=== PATIENT | female | born 1950 | race Caucasian/White ===

== ENCOUNTER → 2016-11-11 | Outpatient (CLI) | payer BC ==
[~2016-11-11] MED LIST: ATOR10TA82 PO; CHOL20005 PO; CLON0.5T3 PO; CTP1X PO; CZR25 PO; MELO7.5T5 PO; OMEG10002 PO; ROSU5TAB PO; SPIR50TA2 PO; TPRSR/25 PO; ZNTT/150 PO
== END | disposition home or self-care (01) ==
LOC: C.MAMM 12:39
PROVIDERS: ATTEND Family Medicine
DX: M85.852 Other specified disorders of bone density and structure, left thigh (principal)

== ENCOUNTER 2017-01-07 09:19 | Observation (INO) | payer BC ==
[2017-01-07] VITALS (7 sets, daily range): BP systolic 116–149; BP diastolic 66–84; PULSE 62–79; TEMP 36.4–36.8; O2SAT 93–97; Ht 154.9 cm; Wt 61.9 kg
[~2017-01-07] VITALS: Ht 154.9 cm; Wt 61.9 kg
[~2017-01-07 09:19] MED LIST changes: -CLON0.5T3 PO; -MELO7.5T5 PO; -ROSU5TAB PO; -ZNTT/150 PO
--- NOTE | 2017-01-07 09:59 | EMERGENCY ROOM VISIT NOTE ---
History Report prepared by Toni: Leonora Guzmán Under the Supervision of: Dr. Dominik Arriaga M.D. First contact with patient: 09:40 Chief Complaint: CARDIAC ASSESSMENT Stated Complaint: CHEST PAIN History of Present Illness The patient is a 66 year old female who presents to the Emergency Room with complaints of persistent chest pain that began around 0830 this morning, but has since resolved. She currently rates her discomfort as a 5/10 in severity. The patient reports that this morning she woke up and was drinking her morning cup of coffee when she developed sudden central chest pain. She reports that she waited because she thought her symptoms were related to gas, but states that she additionally developed lower back pain and right sided jaw pain. The patient states that she became diaphoretic and tried lying down, but states that her symptoms persisted. The patient states that recently she has felt increasingly fatigued, but attributes that to recent medication changes. The patient states that she has had difficulty breathing. She reports a history of cardiomyopathy, but denies any history of lung disease, blood clots, or a previous CA. The patient states that she is a previous smoker. She denies any melena or hematochezia. Source of History: patient Onset: 0830 this morning Position: chest Symptom Intensity: 5/10 Timing: resolved, other (persistent) Associated Symptoms: + diaphoresis, + SOB (difficulty breathing), + back pain (lower back), + fatigue, No melena, No hematochezia Note: Associated Symptoms: Right sided jaw pain Review of Systems See HPI for pertinent positives & negatives. A total of 10 systems reviewed and were otherwise negative. Past Medical & Surgical Medical Problems: (1) HLD (hyperlipidemia) (2) HTN (hypertension) Old medical records were reviewed. Nurse's notes were reviewed and I agree with. Prolonged QT interval. Cardiomyopathy. Family History Heart disease Social History Smoking Status: Former Smoker Drug Use: none Marital Status: single Occupation Status: employed Current/Historical Medications Scheduled Clonidine HCl (Clonidine HCl), 0.1 MG PO HS Losartan Potassium (Losartan Potassium), 25 MG PO DAILY Metoprolol Succinate (Metoprolol Succinate ER), 25 MG PO DAILY Ranitidine (Zantac), 150 MG PO DAILY Rosuvastatin Calcium (Crestor), 5 MG PO Q2D Spironolactone (Aldactone), 50 MG PO DAILY Scheduled PRN Clonazepam (Klonopin), 0.25 MG PO DIRECTED PRN for Sleep Meloxicam (Mobic), 7.5 MG PO DIRECTED PRN for Pain Allergies Coded Allergies: Latex1 -Allergic Contact Dermititis (Verified Allergy, Mild, contact dermatitis, 01/07/17) Amoxicillin (Verified Allergy, Unknown, HIVES, 11/22/15) Aspirin (Verified Allergy, Unknown, GI UPSET, 11/22/15) Clavulanic Acid (Verified Allergy, Unknown, HIVES, 11/22/15) Lamotrigine (Verified Allergy, Unknown, AFFECTS MIND, 11/22/15) Penicillins (Verified Allergy, Unknown, RASH, 11/22/15) Pravastatin (Verified Allergy, Unknown, RASH, 11/22/15) Physical Exam Vital Signs Date Time Temp Pulse Resp B/P (MAP) Pulse Ox O2 Delivery O2 Flow Rate FiO2 01/07/17 10:55 96 Room Air 01/07/17 10:27 65 18 154/71 97 Room Air 01/07/17 09:37 65 01/07/17 09:23 36.7 76 20 161/80 98 Room Air Physical Exam General: Well developed well nourished, non-ill appearing older female, in no acute distress, breathing comfortably on room air. Normal speech HEENT: Normal cephalic atraumatic. Pupils are equal round and reactive to light. Extraocular movements are intact. Oropharynx is pink with moist mucous membranes. No swelling of the mouth lips or tongue. Neck: Supple with a midline trachea. No meningeal signs or stiffness, no JVD or bruits. No Stridor. Chest: Clear to auscultation bilaterally. No wheezes or rhonchi. No increased work of breathing. Heart: regular rate and rhythm. Abdomen: Soft nontender, nondistended without rebound guarding or rigidity. Extremities: No cyanosis clubbing or edema. No calf tenderness or assymetry Spine/Back. Non tender to palpation. No CVA tenderness Skin: Good turgor without rashes. Neurologic exam: Cranial nerves two through 12 are intact. Motor and sensation are intact and symmetrical throughout. Medical Decision & Procedures ER Provider Diagnostic Interpretation: X-ray results as stated below per interpretation by me and the radiologist: CHEST ONE VIEW PORTABLE CLINICAL HISTORY: CHEST PAIN dyspnea COMPARISON STUDY: 11/22/2015 FINDINGS: The bones soft tissues and hemidiaphragms are normal. The cardiomediastinal silhouette is normal. The lungs are clear. The pulmonary vasculature is normal. IMPRESSION: Negative chest. Electronically signed by: Tevin Valencia M.D. 01/07/2017 10:11 AM Dictated Date/Time: 01/07/2017 10:10 AM Laboratory Results 01/07/17 09:30 Red Blood Count 4.97, Mean Corpuscular Volume 89.9, Mean Corpuscular Hemoglobin 31.0, Mean Corpuscular Hemoglobin Concent 34.5, Mean Platelet Volume 9.1, Neutrophils (%) (Auto) 40.8, Lymphocytes (%) (Auto) 51.3, Monocytes (%) (Auto) 6.8, Eosinophils (%) (Auto) 0.7, Basophils (%) (Auto) 0.3, Neutrophils # (Auto) 2.90, Lymphocytes # (Auto) 3.64, Monocytes # (Auto) 0.48, Eosinophils # (Auto) 0.05, Basophils # (Auto) 0.02 01/07/17 09:30 Test 01/07/17 09:30 01/07/17 09:54 White Blood Count 7.10 K/uL (4.8-10.8) Red Blood Count 4.97 M/uL (4.2-5.4) Hemoglobin 15.4 g/dL (12.0-16.0) Hematocrit 44.7 % (37-47) Mean Corpuscular Volume 89.9 fL (80-100) Mean Corpuscular Hemoglobin 31.0 pg (25-34) Mean Corpuscular Hemoglobin Concent 34.5 g/dl (32-36) Platelet Count 259 K/uL (130-400) Mean Platelet Volume 9.1 fL (7.4-10.4) Neutrophils (%) (Auto) 40.8 % Lymphocytes (%) (Auto) 51.3 % Monocytes (%) (Auto) 6.8 % Eosinophils (%) (Auto) 0.7 % Basophils (%) (Auto) 0.3 % Neutrophils # (Auto) 2.90 K/uL (1.4-6.5) Lymphocytes # (Auto) 3.64 K/uL (1.2-3.4) Monocytes # (Auto) 0.48 K/uL (0.11-0.59) Eosinophils # (Auto) 0.05 K/uL (0-0.5) Basophils # (Auto) 0.02 K/uL (0-0.2) RDW Standard Deviation 40.9 fL (36.4-46.3) RDW Coefficient of Variation 12.5 % (11.5-14.5) Immature Granulocyte % (Auto) 0.1 % Immature Granulocyte # (Auto) 0.01 K/uL (0.00-0.02) Prothrombin Time 10.4 SECONDS (9.0-12.0) Prothromb Time International Ratio 1.0 (0.9-1.1) Activated Partial Thromboplast Time 25.7 SECONDS (21.0-31.0) Partial Thromboplastin Ratio 1.0 Anion Gap 8.0 mmol/L (3-11) Estimated GFR () 70.0 Estimated GFR (Non- 60.4 BUN/Creatinine Ratio 28.7 (10-20) Estimated Average Glucose 128 mg/dl Hemoglobin A1c 6.1 % (4.5-5.6) Calcium Level 8.9 mg/dl (8.5-10.1) Total Bilirubin 0.8 mg/dl (0.2-1) Direct Bilirubin 0.2 mg/dl (0-0.2) Aspartate Amino Transf (AST/SGOT) 80 U/L (15-37) Alanine Aminotransferase (ALT/SGPT) 54 U/L (12-78) Alkaline Phosphatase 32 U/L (45-117) Total Protein 7.6 gm/dl (6.4-8.2) Albumin 4.1 gm/dl (3.4-5.0) Lipase 282 U/L (73-393) Bedside Troponin I < 0.030 ng/ml (0-0.045) YN-Hnn-Z-Type Natriuretic Peptide 137 pg/ml (0-900) Laboratory studies as stated above per my review. ECG Indication: chest pain Rate (beats per minute): 68 Rhythm: normal sinus Findings: no acute ischemic change, no ectopy, other (QT interval is not prolonged) Comparison ECG Date: 11/22/15 Change: EKG Change: When compared to EKG done on 11/22/15, PVCs are now absent. Repeat EKG: Normal sinus rhythm, 67 beats per minute, no ischemia, no ectopy. No change from EKG #1 ED Course 0940: Past medical records reviewed. The patient was evaluated in room A11B, and a complete history and physical examination were performed. 1035: I reevaluated the patient and she states that she had an episode of chest pain, but states that it had resolved. I offered a GI cocktail or Nitro, but she declined. I discussed all the exam findings with her and I discussed the treatment plan. She verbalized complete understanding and agreement. She will be evaluated for further treatment. 1051: I discussed the patients case with JOCE Minaya. He is going to evaluate the patient for further treatment. 1055: I reevaluated the patient and Dr. Caal is at the bedside. Medical Decision Differentials include, but are not limited to; acute coronary syndrome, arrhythmia, CHF, GERD, gallbladder disease, electrolyte or metabolic abnormality. This patient comes in complaining of chest pain and Jaw pain as well as shortness of breath she feels better now. She has no tenderness in the epigastric area has not reproducible. She have stomach issues and recently switched to Crestor so that could certainly be causing some of this. I'm concerned about cardiac etiology however. EKG was obtained showing acute coronary syndrome or arrhythmia. Her QT interval is not significantly prolonged at 467. Chest x-ray multiple cardiac blood testing was obtained. A follow-up EKG does not show any significant change or progression compared to EKG #1. Her initial cardiac biomarkers are negative. She has no acute electrolyte or metabolic abnormalities. I do think that she needs to be observed and had a further cardiac evaluation concern given her risk factors and symptoms of this could be unstable angina. She cannot take aspirin she tells me. She will be admitted for further treatment and evaluation. Reconciliation: I attest that I have personally reviewed the patient's current medication list. Blood pressure Screening: Patient was found to have an elevated blood pressure and is being evaluated for further treatment in the hospital. Consults Time Called: 1040 Consulting Physician: JOCE Minaya Returned Call: 1051 I discussed the patients case with JOCE Minaya. He is going to evaluate the patient for further treatment. Impression Primary Impression: Unstable angina Additional Impression: Precordial chest pain Scribe Attestation The scribe's documentation has been prepared under my direction and personally reviewed by me in its entirety. I confirm that the note above accurately reflects all work, treatment, procedures, and medical decision making performed by me. Departure Information Dispostion Being Evaluated By Hospitalist Referrals Julián Interiano D.O. (PCP) Problem Qualifiers
[2017-01-07 10:03] LABS: HEMATOCRIT 44.7 % (37-47); MEAN CELL VOLUME 89.9 fL (80-100); MEAN CORPUSCULAR HGB CONC 34.5 g/dl (32-36); MEAN PLATELET VOLUME 9.1 fL (7.4-10.4); PLATELET COUNT 259 K/uL (130-400); RED BLOOD COUNT 4.97 M/uL (4.2-5.4)
--- NOTE | 2017-01-07 10:12 | DIAGNOSTIC IMAGING REPORT ---
CHEST ONE VIEW PORTABLE CLINICAL HISTORY: CHEST PAIN dyspnea COMPARISON STUDY: 11/22/2015 FINDINGS: The bones soft tissues and hemidiaphragms are normal. The cardiomediastinal silhouette is normal. The lungs are clear. The pulmonary vasculature is normal. IMPRESSION: Negative chest. Electronically signed by: Tevin Valencia M.D. 01/07/2017 10:11 AM Dictated Date/Time: 01/07/2017 10:10 AM
[2017-01-07 10:13] LABS: BLOOD UREA NITROGEN 28 mg/dl (7-18); BUN/CREATININE RATIO 28.7 (10-20); CALCIUM 8.9 mg/dl (8.5-10.1); CARBON DIOXIDE 29 mmol/L (21-32); CHLORIDE 103 mmol/L (98-107); CREATININE 0.97 mg/dl (0.60-1.20); GLUCOSE 124 mg/dl (70-99); POTASSIUM 3.7 mmol/L (3.5-5.1); SODIUM 140 mmol/L (136-145)
[2017-01-07 10:14] LABS: PROTHROMBIN TIME (PATIENT) 10.4 SECONDS (9.0-12.0)
[2017-01-07 10:14] LABS: POINT OF CARE PRO-BNP 137 pg/ml (0-900); POINT OF CARE TROPONIN I < 0.030 ng/ml (0-0.045)
[2017-01-07 10:18] LABS: ALKALINE PHOSPHATASE 32 U/L (45-117); ALT/SGPT 54 U/L (12-78); AST/SGOT 80 U/L (15-37); CKMB/CK RATIO 1.1 (0-3.0)
[2017-01-07] MEDS ORDERED: MELO7.5T5 PO (10:39)
[2017-01-07] MEDS ORDERED: ROSU5TAB PO (10:39)
[2017-01-07] MEDS ORDERED: CLON0.5T3 PO (10:39)
[2017-01-07] MEDS ORDERED: ZNTT/150 PO (10:39)
[2017-01-07 10:47] LABS: BASO % 0.3 %; BASO ABS # 0.02 K/uL (0-0.2); COMPLETE YES; EOS % 0.7 %; IG% 0.1 %; LYMPH % 51.3 %; LYMPH ABS # 3.64 K/uL (1.2-3.4); MONO % 6.8 %; NEUT % 40.8 %
[2017-01-07] MEDS ORDERED: MAGNESIUM HYDROXIDE SUSP 30 ML UDC PO PRN (12:00)
[2017-01-07] MEDS ORDERED: ONDANSETRON INJ 2 MG/ML 2 ML VIAL IV PRN (12:00)
[2017-01-07] MEDS ORDERED: ACETAMINOPHEN 325 MG TAB PO PRN (12:00)
[2017-01-07] MEDS ORDERED: POLYETHYLENE (MIRALAX) 17 GM PACK PO PRN (12:00)
[2017-01-07] MEDS ORDERED: ALUMINUM/MAGNESIUM/SIMETH (MAALOX MAX) 30 ML UDC PO PRN (12:00)
[2017-01-07] MEDS ORDERED: NITROGLYCERIN 0.4 MG SL PER TAB CHARGE SL PRN (12:00)
--- NOTE | 2017-01-07 12:23 | History and Physical ---
History & Physical Date & Time of Service: Jan 07, 2017 at 12:03 Chief Complaint: Chest Pain Primary Care Physician: Julián Interiano D.O. History of Present Illness Source: patient, clinic records, hospital records, friend (neighbor/friend at bedside) This is a 66 y/o female with a history of HTN, HLD, prolonged QT syndrome, REM sleep behavior disorder, and osteopenia who presented to the ED on 01/07 with chest pain. The patient states that she developed a central chest pressure around 8:30 this morning while drinking her coffee. She described the initial pain as a severe 10/10 pressure like "an elephant on my chest." This was accompanied with diaphoresis as well as mild dizziness, nausea, and shortness of breath. The patient states that the severe pain lasted for about 30 minutes and then began to subside. She did not take anything at home for her pain and did not receive any medication in the ED. The pain eventually resolved, although she now states that it is now intermittent. She currently rates her discomfort as a 2/10 dull pain. She is still somewhat dizzy, but her nausea and shortness of breath have resolved. The patient states that she has also been feeling more fatigued over the last month than usual, but she attributes this to the recent change in her statin. The patient denies fevers, chills, palpitations, claudication, cough, wheezing, vomiting, abdominal pain, dysuria, hematuria, urinary retention, paralysis, weakness, new/different numbness and tingling. Past Medical/Surgical History HTN HLD Prolonged QT REM sleep behavior disorder Osteopenia Family History Cancer (breast, bone) Chronic obstructive pulmonary disease Diabetes mellitus Heart disease Hyperlipidemia Hypertension Myocardial infarction Social History Smoking Status: Never Smoker Smokeless Tobacco Use: No Alcohol Use: socially (3-4 glasses of wine/week) Drug Use: none Marital Status: single Housing status: lives alone Occupational Status: retired Multi-Drug Resistant Organisms History of MDRO: No Allergies Coded Allergies: Latex1 -Allergic Contact Dermititis (Verified Allergy, Mild, contact dermatitis, 01/07/17) Amoxicillin (Verified Allergy, Unknown, HIVES, 11/22/15) Aspirin (Verified Allergy, Unknown, GI UPSET, 11/22/15) Clavulanic Acid (Verified Allergy, Unknown, HIVES, 11/22/15) Lamotrigine (Verified Allergy, Unknown, AFFECTS MIND, 11/22/15) Penicillins (Verified Allergy, Unknown, RASH, 11/22/15) Pravastatin (Verified Allergy, Unknown, RASH, 11/22/15) Home Medications Scheduled Clonidine HCl (Clonidine HCl), 0.1 MG PO HS Losartan Potassium (Losartan Potassium), 25 MG PO DAILY Metoprolol Succinate (Metoprolol Succinate ER), 25 MG PO DAILY Ranitidine (Zantac), 150 MG PO DAILY Rosuvastatin Calcium (Crestor), 5 MG PO Q2D Spironolactone (Aldactone), 50 MG PO DAILY Scheduled PRN Clonazepam (Klonopin), 0.25 MG PO DIRECTED PRN for Sleep Meloxicam (Mobic), 7.5 MG PO DIRECTED PRN for Pain Review of Systems Constitutional: + sweats, + fatigue, No fever, No chills Eyes: No worsening of vision, No eye pain, No diplopia ENT: No hearing loss, No sore throat, No trouble swallowing Respiratory: + shortness of breath, No cough, No wheezing Cardiovascular: + chest pain, No claudication, No palpitations Abdomen: + nausea, No pain, No vomiting Musculoskeletal: No joint pain, No muscle pain, No calf pain Genitourinary - Female: No dysuria, No urinary retention, No hematuria Neurologic: + numbness/tingling (chronic RUE tingling secondary to cervical spinal stenosis), No paralysis, No weakness Integumentary: No rash, No itch, No color change Physical Exam Vital Signs Date Time Temp Pulse Resp B/P (MAP) Pulse Ox O2 Delivery O2 Flow Rate FiO2 01/07/17 10:27 65 18 154/71 97 Room Air 01/07/17 09:37 65 01/07/17 09:23 36.7 76 20 161/80 98 Room Air General Appearance: WD/WN, no apparent distress Head: normocephalic, atraumatic Eyes: normal inspection, PERRL, EOMI ENT: normal ENT inspection, hearing grossly normal, pharynx normal Neck: supple, no JVD, trachea midline Respiratory/Chest: chest non-tender, lungs clear, normal breath sounds Cardiovascular: regular rate, rhythm, no gallop, no murmur Abdomen/GI: normal bowel sounds, soft, + tenderness (mild tenderness in suprapubic area) Extremities/Musculoskelatal: normal inspection, no calf tenderness, no pedal edema Neurologic/Psych: alert, normal mood/affect, oriented x 3 Skin: normal color, warm/dry, no rash Diagnostics Laboratory Results Results Past 24 Hours Test 01/07/17 09:30 01/07/17 09:49 01/07/17 09:54 Range/Units White Blood Count 7.10 4.8-10.8 K/uL Red Blood Count 4.97 4.2-5.4 M/uL Hemoglobin 15.4 12.0-16.0 g/dL Hematocrit 44.7 37-47 % Mean Corpuscular Volume 89.9 80-100 fL Mean Corpuscular Hemoglobin 31.0 25-34 pg Mean Corpuscular Hemoglobin Concent 34.5 32-36 g/dl Platelet Count 259 130-400 K/uL Mean Platelet Volume 9.1 7.4-10.4 fL Neutrophils (%) (Auto) 40.8 % Lymphocytes (%) (Auto) 51.3 % Monocytes (%) (Auto) 6.8 % Eosinophils (%) (Auto) 0.7 % Basophils (%) (Auto) 0.3 % Neutrophils # (Auto) 2.90 1.4-6.5 K/uL Lymphocytes # (Auto) 3.64 1.2-3.4 K/uL Monocytes # (Auto) 0.48 0.11-0.59 K/uL Eosinophils # (Auto) 0.05 0-0.5 K/uL Basophils # (Auto) 0.02 0-0.2 K/uL RDW Standard Deviation 40.9 36.4-46.3 fL RDW Coefficient of Variation 12.5 11.5-14.5 % Immature Granulocyte % (Auto) 0.1 % Immature Granulocyte # (Auto) 0.01 0.00-0.02 K/uL Prothrombin Time 10.4 9.0-12.0 SECONDS Prothromb Time International Ratio 1.0 0.9-1.1 Activated Partial Thromboplast Time 25.7 21.0-31.0 SECONDS Partial Thromboplastin Ratio 1.0 Sodium Level 140 136-145 mmol/L Potassium Level 3.7 3.5-5.1 mmol/L Chloride Level 103 98-107 mmol/L Carbon Dioxide Level 29 21-32 mmol/L Anion Gap 8.0 3-11 mmol/L Blood Urea Nitrogen 28 7-18 mg/dl Creatinine 0.97 0.60-1.20 mg/dl Estimated GFR () 70.0 Estimated GFR (Non- 60.4 BUN/Creatinine Ratio 28.7 10-20 Random Glucose 124 70-99 mg/dl Calcium Level 8.9 8.5-10.1 mg/dl Total Bilirubin 0.8 0.2-1 mg/dl Direct Bilirubin 0.2 0-0.2 mg/dl Aspartate Amino Transf (AST/SGOT) 80 15-37 U/L Alanine Aminotransferase (ALT/SGPT) 54 12-78 U/L Alkaline Phosphatase 32 45-117 U/L Total Creatine Kinase 194 26-192 U/L Creatine Kinase MB 2.1 0.5-3.6 ng/ml Creatine Kinase MB Ratio 1.1 0-3.0 Total Protein 7.6 6.4-8.2 gm/dl Albumin 4.1 3.4-5.0 gm/dl Lipase 282 73-393 U/L Bedside Troponin I < 0.030 0-0.045 ng/ml CX-Jgu-[id number]-Type Natriuretic Peptide 137 0-900 pg/ml Diagnostic Radiology Reviewed the following studies and agree with interpretation as follows: Patient Name: ROSIO VICENTE Unit Number: [id number] Dictated: 01/07/17 1010 Transcribed: 01/07/17 1010 MS Printed Date/Time: [~ rep prt dt]/[~ rep prt tm] [~ rep ct labl] - [~ rep ct ivnm] [facility] [place] [address] Dictated: 01/07/17 1010 Transcribed: 01/07/17 1010 MS Printed Date/Time: [~ rep prt dt]/[~ rep prt tm] [~ rep ct labl] - [~ rep ct ivnm] Patient: ROSIO VICENTE Address1: [address] [place] [address] Rec: [id number] Address2: Acct ID: [id number] [facility] Zip: [place] [address] Date: 1950 Sex: F Room/Bed: Ref Phy: Julián Interiano D.O. SC: [facility] Att Phy: Report #: [id number] Lulu Phy: Julián Interiano D.O. Test: CXR1P Admit Phy: Scrum Project Manager: YENY Interpreting Phy: Tevin Valencia M.D. Diagnosis: CHEST PAIN Ordering Phy: Dominik Arriaga M.D. Service Date: 01/07/17 Admit Date: 01/07/17 MNE: [id number] CONF: DICTATED BY: Tevin Valencia M.D.]] CC: Julián Interiano D.O. Newcomb, Brian D., M.D. Endcc: [~ rep ct add3]] CHEST ONE VIEW PORTABLE CLINICAL HISTORY: CHEST PAIN dyspnea COMPARISON STUDY: 11/22/2015 FINDINGS: The bones soft tissues and hemidiaphragms are normal. The cardiomediastinal silhouette is normal. The lungs are clear. The pulmonary vasculature is normal. IMPRESSION: Negative chest. Electronically signed by: Tevin Valencia M.D. 01/07/2017 10:11 AM Dictated Date/Time: 01/07/2017 10:10 AM The status of this report is Signed. Draft = Not yet reviewed or approved by Radiologist. Signed = Reviewed and approved by Radiologist. <AttendingPhy></AttendingPhy> <FamilyPhy>Julián Interiano D.O.</FamilyPhy> < PrimaryPhy>Julián Interiano D.O.</PrimaryPhy> <UnitNumber>[id number]</ UnitNumber> <VisitNumber>[id number]</VisitNumber> <PatientName>ROSIO VICENTE</PatientName> <DateOfBirth>1950</DateOfBirth> <Location>[facility] </Location> <ServiceDate>01/07/17</ServiceDate> <MNE>ESINDI</MNE> <OrderingPhy> Dominik Arriaga M.D.</OrderingPhy> <OrderingPhyMNE>f rep ord dr verduzco</ OrderingPhyMNE> <DictatingPhyMNE>f rep dict dr verduzco</DictatingPhyMNE> <CCListMNE> f rep ct mne</CCListMNE> <AdmittingPhyMNE>f pt admit dr verduzco</AdmittingPhyMNE> < AttendingPhyMNE>f pt attend dr verduzco</AttendingPhyMNE> <ConsultingPhyMNE>f pt consult dr verduzco</ConsultingPhyMNE> <FamilyPhyMNE>f pt fam dr verduzco</FamilyPhyMNE> <OtherPhyMNE>f pt other dr verduzco</OtherPhyMNE> < PrimaryPhyMNE>f pt prim care dr verduzco</PrimaryPhyMNE> <ReferringPhyMNE>f pt referring dr verduzco</ReferringPhyMNE> EKG Reviewed EKG and agree with interpretation as follows: 68 bpm, NSR, QTc 467 Impression Assessment and Plan 66 y/o female with a history of HTN, HLD, prolonged QT syndrome, REM sleep behavior disorder, and osteopenia who presented to the ED on 01/07 with chest pain. The pain had resolved on its own, but the patient now states it is coming and going. Chest pain had originally been accompanied with dizziness, nausea, diaphoresis and shortness of breath, although these have now resolved except for some mild dizziness. Pt afebrile, VSS. CXR shows no acute disease. EKG shows no ischemic changes. QT interval slightly prolonged. Cardiac enzymes negative. Chest pain -Admit to telemetry for observation -Trend cardiac enzymes q8h x 3 -EKG prn with chest pain and q am -Echocardiogram ordered -Fasting lipid profile tomorrow morning -Random glucose elevated, will check HgbA1c HTN--stable -Continue losartan 25 mg PO qd and metoprolol succinate 25 mg PO qd HLD -Continue Crestor 5 mg PO q2d. Last dose taken 01/06 -Statin recently changed from Lipitor 10 mg PO qd due to myalgias. AST elevated and CK barely elevated, may be due to previous statin dosing. REM sleep behavior disorder -Continue clonazepam 0.25 mg PO qhs Hirsutism -Continue Aldactone 25 mg PO qd Hot flashes -Continue clonidine 0.1 mg PO qhs DVT prophylaxis -Enoxaparin 40 mg SC q24h -KEIRA hose and SCDs Code Status -Level I, FULL RESUSCITATION STATUS Level of Care Telemetry Resuscitation Status FULL RESUSCITATION VTE Prophylaxis VTE Risk Assessment Done? Y/N: Yes Risk Level: Moderate Given or contraindicated: Enoxaparin (Lovenox)SQ, T.E.D. Stockings, SCD's Assessment and Plan Attending Addendum: I have physically seen and examined this patient, directed their medical care, supervised the Physician Palliative Medicine Physician's activity, and agree with the H&P as noted above, with the following changes: NONE.
[2017-01-07 12:28] LABS: ESTIMATED AVERAGE GLUCOSE 128 mg/dl; HA1C FLAG Normal (Normal)
[2017-01-07] MEDS ORDERED: IV FLUIDS COMPLETED PRN (14:00)
[2017-01-07] MEDS: ENOXAPARIN 40 MG/0.4 ML SYR SC SCH (14:00)
[2017-01-07 18:19] LABS: CKMB/CK RATIO 1.2 (0-3.0)
[2017-01-07] MEDS ORDERED: CLONAZEPAM 0.5 MG TAB PO SCH (21:00)
[2017-01-07] MEDS ORDERED: CLONIDINE HCL 0.1 MG TAB PO SCH (21:00)
[2017-01-08 00:01] VITALS: O2SAT 93
[2017-01-08 01:59] LABS: CKMB/CK RATIO 1.4 (0-3.0)
[2017-01-08 04:02] VITALS: O2SAT 93
[2017-01-08 04:49] VITALS: BP 104/68; PULSE 75; TEMP 36.9; O2SAT 96
[2017-01-08 06:37] LABS: HEMATOCRIT 43.3 % (37-47); MEAN CORPUSCULAR HEMOGLOBIN 30.4 pg (25-34); MEAN CORPUSCULAR HGB CONC 33.7 g/dl (32-36); MEAN PLATELET VOLUME 9.1 fL (7.4-10.4); PLATELET COUNT 254 K/uL (130-400); RED BLOOD COUNT 4.81 M/uL (4.2-5.4); WHITE BLOOD COUNT 5.38 K/uL (4.8-10.8)
[2017-01-08 07:19] VITALS: BP 129/64; PULSE 72; TEMP 36.8; O2SAT 95
[2017-01-08 07:23] LABS: BUN/CREATININE RATIO 21.5 (10-20); CALCIUM 8.7 mg/dl (8.5-10.1); CHOLESTEROL/HDL RATIO 3.4; CREATININE 0.83 mg/dl (0.60-1.20)
[2017-01-08] MEDS ORDERED: PERFLUTREN LIPID MICROSPHERE (DEFINITY) IV ONE (07:57)
[2017-01-08] MEDS ORDERED: LOSARTAN POTASSIUM 25 MG TAB PO SCH (09:00)
[2017-01-08] MEDS ORDERED: METOPROLOL SUCC 25MG EXT REL TAB PO SCH (09:00)
[2017-01-08] MEDS ORDERED: SPIRONOLACTONE 100 MG TAB PO SCH (09:00)
[2017-01-08] MEDS ORDERED: RANITIDINE HCL 150 MG TAB PO SCH (09:00)
[2017-01-08 11:55] VITALS: BP 124/82; PULSE 88; TEMP 36.7; O2SAT 97
--- NOTE | 2017-01-08 11:55 | Discharge Instructions ---
Discharge Instructions Date of Service Jan 08, 2017. Admission Reason for Admission: Precordial Chest Pain Discharge Discharge Diagnosis / Problem: Chest pain Discharge Goals Goal(s): Decrease discomfort, Improve function, Diagnostic testing, Therapeutic intervention Activity Recommendations Activity Limitations: resume your previous activity (as tolerated) . Instructions / Follow-Up Instructions / Follow-Up You were admitted to the hospital for overnight observation after presenting to the ER with chest pain. You were placed in a telemetry bed for continuous cardiac monitoring, which did not reveal any abnormal heart rhythms or acute events. Your EKGs did not show any changes consistent with ischemia, or lack of blood supply to the heart. Your cardiac enzymes were trended over time; these are chemicals that are released when there is damage to the heart, and they were all negative. A stress echocardiogram (ultrasound of the heart) was done to assess for any exercise induced ischemia, heart wall motion abnormalities, or problems with heart valves. This was also normal. A fasting lipid profile was obtained to check your cholesterol, which was normal as you are on a statin drug. This may have been related to your missed dose of ranitidine yesterday morning and subsequent esophageal spasm. You had some elevated blood sugar readings during your stay, so a ditmzatvP2g (3 month average of blood sugar) was checked to assess for diabetes. This was elevated at 6.1, which indicates "pre-diabetes". To help prevent development of diabetes, try to eat a healthy diet of whole grains, lean proteins, fruits and vegetables. Try to avoid processed/refined foods or sugary foods. Since your cardiac work up has been negative, you are medically stable to be discharged home. Medications: *Please try to minimize your meloxicam (and all NSAIDs) use as this can cause inflammation of the stomach. Continue to take your other home medications as prescribed. Follow up: *Please follow up with your primary care provider, Dr. Interiano, in 1 week regarding your hospital stay. *Continue your routine follow ups with your mold cooler. Please seek medical attention if you experience fevers, chills, sweats, dizziness, loss of consciousness, chest pain, shortness of breath, nausea, vomiting, numbness, or tingling. Current Hospital Diet Patient's current hospital diet: AHA Diet (Heart Healthy), Vegetarian Diet Discharge Diet Recommended Diet: AHA Diet (Heart Healthy) Procedures Procedures Performed: Stress echocardiogram Pending Studies Studies pending at discharge: no Laboratory Results Hemoglobin A1c Test 01/07/17 09:30 Range/Units Estimated Average Glucose 128 mg/dl Hemoglobin A1c 6.1 H 4.5-5.6 % Lipid Panel Test 01/08/17 06:16 Range/Units Triglycerides Level 128 0-150 mg/dl Cholesterol Level 172 0-200 mg/dl HDL Cholesterol 51 mg/dl Cholesterol/HDL Ratio 3.4 LDL Cholesterol, Calculated 95 mg/dl Medical Emergencies . Who to Call and When: Medical Emergencies: If at any time you feel your situation is an emergency, please call 911 immediately. . Non-Emergent Contact Non-Emergency issues call your: Primary Care Provider, [employer] Call Non-Emergent contact if: you have a fever, your pain is not controlled, your pain is worsening, your pain is unusual for you, your pain is concerning you, you have any medication questions . Past History Medical & Surgical History: (1) Precordial chest pain (2) HTN (hypertension) (3) HLD (hyperlipidemia) . "Provider Documentation" section prepared by Lucero Ferguson. . VTE Core Measure Inpt VTE Proph given/why not?: Enoxaparin (Lovenox)SQ, T.E.D. Stockings, SCD's
[2017-01-08] MEDS: ENOXAPARIN 40 MG/0.4 ML SYR SC SCH (12:30)
--- NOTE | 2017-01-08 13:51 | ECHOCARDIOGRAM REPORT ---
*NOTICE TO RECEIVING [employer] This information is strictly Confidential and protected under [place] law. [place] law prohibits you from making any further disclosure of this information unless further disclosure is expressly permitted by the written consent of the person to whom it pertains or is authorized by law. A general authorization for the release of medical or other information is not sufficient for this purpose. Hospital accepts no responsibility if the information is made available to any other person, INCLUDING THE PATIENT. Interpretation Summary * Name: ROSIO VICENTE Study Date: 01/08/2017 07:39 AM BP: 137/79 mmHg * Patient Location: [facility]\S\N285\S\2 HR: 64 * : 1950 (M/d/yyyy) Gender: Female Height: 61 in * Age: 66 yrs Ethnicity: [place] Weight: 138 lb * Ordering Physician: Lucero Ferguson * Performed By: Fatoumata Hinojosa * * Reason For Study: CHEST PAIN * BSA: 1.6 m2 * -- Conclusions -- * There is mild asymmetric left ventricular hypertrophy. * Left ventricular systolic function is normal. * Grade I diastolic dysfunction, (abnormal relaxation pattern). * There is mild mitral valve prolapse. Procedure Details * A complete two-dimensional transthoracic echocardiogram was performed (2D, M-mode, Doppler and color flow Doppler). * A contrast injection of Definity was performed to improve assessment of LV function. * Contrast was injected into an intravenous site in the left arm. * One vial of Definity ultrasound contrast was diluted in normal saline to a total volume of 10 ml. A total of '2' ml of solution was administered during imaging. * Lot # [id number] of Definity utilized for procedure. * Expiration date 01/16. * The attending nurse who injected the contrast agent was RIC VELAZCO RN. Left Ventricle * The left ventricle is normal in size. * There is mild asymmetric left ventricular hypertrophy. * The basal septum is thickened and angulated consistent with sigmoid septum. * Ejection Fraction = 60-65%. * Left ventricular systolic function is normal. * Grade I diastolic dysfunction, (abnormal relaxation pattern). * The left ventricular wall motion is normal. Right Ventricle * The right ventricle is normal in size and function. Atria * The left atrial size is normal. * Right atrial size is normal. Mitral Valve * The mitral valve is grossly normal. * There is mild mitral valve prolapse. Tricuspid Valve * The tricuspid valve is not well visualized, but is grossly normal. * There is trace tricuspid regurgitation. Aortic Valve * The aortic valve is normal in structure and function. * No hemodynamically significant valvular aortic stenosis. * No aortic regurgitation is present. Pericardium/Pleural * There is no pericardial effusion. Great Vessels * Normal inferior vena cava diameter and respiratory variation suggests normal central venous pressure. MMode 2D Measurements and Calculations IVSd 1.4 cm IVSs 1.7 cm LVIDd 3.9 cm LVIDs 2.7 cm LVPWd 1.1 cm LVPWs 1.6 cm IVS/LVPW 1.3 FS 32.0 % EDV(Teich) 66.7 ml ESV(Teich) 26.1 ml EF(Teich) 60.8 % EDV(cubed) 60.2 ml ESV(cubed) 18.9 ml EF(cubed) 68.6 % % IVS thick 27.7 % % LVPW thick 44.3 % LV mass(C)d 165.7 grams LV mass(C)dI 102.7 grams/m\S\2 LV mass(C)s 162.3 grams LV mass(C)sI 100.6 grams/m\S\2 SV(Teich) 40.6 ml SI(Teich) 25.2 ml/m\S\2 SV(cubed) 41.3 ml SI(cubed) 25.6 ml/m\S\2 EPSS 0.66 cm ACS 1.3 cm LA dimension 3.1 cm asc Aorta Diam 2.8 cm LVOT diam 2.0 cm LVOT area 3.3 cm\S\2 LVAd ap4 27.5 cm\S\2 LVLd ap4 7.4 cm EDV(MOD-sp4) 82.1 ml EDV(sp4-el) 86.1 ml LVAs ap4 15.5 cm\S\2 LVLs ap4 6.2 cm ESV(MOD-sp4) 32.0 ml ESV(sp4-el) 32.8 ml EF(MOD-sp4) 61.0 % EF(sp4-el) 61.8 % LVAd ap2 22.0 cm\S\2 LVLd ap2 7.1 cm EDV(MOD-sp2) 56.3 ml EDV(sp2-el) 58.0 ml LVAs ap2 12.7 cm\S\2 LVLs ap2 6.1 cm ESV(MOD-sp2) 21.6 ml ESV(sp2-el) 22.3 ml EF(MOD-sp2) 61.7 % EF(sp2-el) 61.6 % LVLd %diff -4.84 % EDV(MOD-bp) 69.5 ml LVLs %diff -1.54 % ESV(MOD-bp) 26.2 ml EF(MOD-bp) 62.4 % SV(MOD-sp4) 50.1 ml SI(MOD-sp4) 31.0 ml/m\S\2 SV(MOD-sp2) 34.7 ml SI(MOD-sp2) 21.5 ml/m\S\2 SV(MOD-bp) 43.4 ml SI(MOD-bp) 26.9 ml/m\S\2 SV(sp4-el) 53.2 ml SI(sp4-el) 33.0 ml/m\S\2 SV(sp2-el) 35.7 ml SI(sp2-el) 22.1 ml/m\S\2 Doppler Measurements and Calculations MV E max jenni 72.1 cm/sec MV A max jenni 101.2 cm/sec MV E/A 0.71 MV dec time 0.22 sec Ao V2 max 115.6 cm/sec Ao max PG 5.3 mmHg Ao max PG (full) 2.9 mmHg ABBY(V,A) 2.2 cm\S\2 ABBY(V,D) 2.2 cm\S\2 LV V1 max PG 2.5 mmHg LV V1 max 78.5 cm/sec PA V2 max 57.2 cm/sec PA max PG 1.3 mmHg
--- NOTE | 2017-01-08 14:07 | Discharge Summary ---
Discharge Summary Date of Service Jan 08, 2017. (Lucero Ferguson ., STORM) Discharge Summary Admission Date: Jan 07, 2017 at 12:03 Discharge Date: Jan 08, 2017 Discharge Disposition: Home Principal Diagnosis: Chest pain Problems/Secondary Diagnoses: HTN HLD Prolonged QT REM sleep behavior disorder Osteopenia Procedures: Baseline echocardiogram: Interpretation Summary * Name: ROSIO VICENTE Study Date: 01/08/2017 07:39 AM BP: 137/79 mmHg * Patient Location: [facility]\\S\\N285\\S\\2 HR: 64 * : 1950 (M/d/yyyy) Gender: Female Height: 61 in * Age: 66 yrs Ethnicity: [place] Weight: 138 lb * Ordering Physician: Lucero Ferguson * Performed By: Fatoumata Hinojosa * * Reason For Study: CHEST PAIN * BSA: 1.6 m2 * -- Conclusions -- * There is mild asymmetric left ventricular hypertrophy. * Left ventricular systolic function is normal. * Grade I diastolic dysfunction, (abnormal relaxation pattern). * There is mild mitral valve prolapse. Procedure Details * A complete two-dimensional transthoracic echocardiogram was performed (2D, M-mode, Doppler and color flow Doppler). * A contrast injection of Definity was performed to improve assessment of LV function. * Contrast was injected into an intravenous site in the left arm. * One vial of Definity ultrasound contrast was diluted in normal saline to a total volume of 10 ml. A total of '2' ml of solution was administered during imaging. * Lot # [id number] of Definity utilized for procedure. * Expiration date 01/16. * The attending nurse who injected the contrast agent was RIC VELAZCO RN. Left Ventricle * The left ventricle is normal in size. * There is mild asymmetric left ventricular hypertrophy. * The basal septum is thickened and angulated consistent with sigmoid septum. * Ejection Fraction = 60-65%. * Left ventricular systolic function is normal. * Grade I diastolic dysfunction, (abnormal relaxation pattern). * The left ventricular wall motion is normal. Right Ventricle * The right ventricle is normal in size and function. Atria * The left atrial size is normal. * Right atrial size is normal. Mitral Valve * The mitral valve is grossly normal. * There is mild mitral valve prolapse. Tricuspid Valve * The tricuspid valve is not well visualized, but is grossly normal. * There is trace tricuspid regurgitation. Aortic Valve * The aortic valve is normal in structure and function. * No hemodynamically significant valvular aortic stenosis. * No aortic regurgitation is present. Pericardium/Pleural * There is no pericardial effusion. Great Vessels * Normal inferior vena cava diameter and respiratory variation suggests normal central venous pressure. Stress echocardiogram: Interpretation Summary * Name: ORSIO VICENTE Study Date: 01/08/2017 10:52 AM BP: 141/89 mmHg * Patient Location: [facility]\\S\\N285\\S\\2 HR: 94 * : 1950 (M/d/yyyy) Gender: Female Height: 61 in * Age: 66 yrs Ethnicity: [place] Weight: 136 lb * Ordering Physician: Ara Baptiste * Performed By: Fatoumata Hinojosa * * Reason For Study: CHEST PAIN * BSA: 1.6 m2 * -- Conclusions -- * Diagnostic exercise echocardiogram without evidence of inducible ischemia * Hypertensive response to exercise. Procedure Details * A contrast injection of Definity was performed to improve assessment of LV function. * Contrast was injected into an intravenous site in the left arm. * One vial of Definity ultrasound contrast was diluted in normal saline to a total volume of 10 ml. A total of '4' ml of solution was administered during imaging. * Lot # [id number] of Definity utilized for procedure. * Expiration date 01/16. * The attending nurse who injected the contrast agent was RIC VELAZCO RN. Left Ventricular Findings with Stress * Baseline BP was slightly elevated. Hypertensive response to exercise Patient had right-sided chest pain whcih did not change during the test. This was not her index chest pain present at admission. Baseline echocardiogram images were normal. At peak exertion there was appropriate augmentation of all coreas without evidence of inducible wall motion abnormalities. Boss treadmill score:6 (low risk) Stress Parameters * Normal baseline electrocardiogram. * Stress ECG: No ST changes. No arrhythmias. * The stress portion of this study was personally supervised by the undersigned interpreting physician. * Rest heart rate was '94' BPM. * Rest blood pressure was '141/89' * Maximum heart rate achieved was 171 bpm. * Maximum heart rate was 111 % of maximum age-predicted heart rate. * Maximum blood pressure was '201/87' * Total exercise time was '6:21' * Maximum exercise MET level achieved was '7.50' METS * Maximum treadmill speed was '3.40' miles per hour. * Maximum treadmill elevation was '14.00'% grade. * Exercise was terminated due to 'target heart rate achieved.' * No symptoms during exercise. Left Ventricular Findings with Stress * Diagnostic exercise echocardiogram without evidence of inducible ischemia Hypertensive response to exercise. (Lucero Ferguson ., PA-C) Medication Reconciliation Continued Medications: Clonazepam (Klonopin) 0.5 Mg Tab 0.25 MG PO DIRECTED PRN for Sleep Clonidine HCl (Clonidine HCl) 0.1 Mg Tab 0.1 MG PO HS Losartan Potassium (Losartan Potassium) 25 Mg Tab 25 MG PO DAILY Metoprolol Succinate (Metoprolol Succinate ER) 25 Mg Tabcr 25 MG PO DAILY Ranitidine (Zantac) 150 Mg Tab 150 MG PO DAILY Rosuvastatin Calcium (Crestor) 5 Mg Tab 5 MG PO Q2D Spironolactone (Aldactone) 50 Mg Tab 50 MG PO DAILY, TAB Discontinued Medications: Meloxicam (Mobic) 7.5 Mg Tab 7.5 MG PO DIRECTED PRN for Pain Referrals At Discharge Follow up Referrals: Family Practice Referral - Within 1 Week with Julián Interiano D.O. Discharge Exam Patient reports feeling well. She denies any chest pain currently. She does complain of some fatigue but states she was not able to sleep much last night. She denies any lightheadedness or nausea now. She states she tolerated the exercise stress echo well. The patient denies fevers, chills, sweats, chest pain, palpitations, claudication, cough, wheezing, shortness of breath, nausea, vomiting, abdominal pain, dysuria, hematuria, urinary retention, paralysis, weakness, numbness and tingling. Review of Systems: Constitutional: No fever, No chills, No sweats Eyes: No worsening of vision, No eye pain, No diplopia ENT: No hearing loss, No sore throat, No trouble swallowing Respiratory: No cough, No wheezing, No shortness of breath Cardiovascular: No chest pain, No claudication, No palpitations Abdomen: No pain, No nausea, No vomiting Musculoskeletal: No joint pain, No muscle pain, No calf pain Genitourinary - Female: No dysuria, No urinary retention, No hematuria Neurologic: + numbness/tingling (chronic), No paralysis, No weakness Integumentary: No rash, No itch, No color change Physical Exam: General Appearance: WD/WN, no apparent distress Eyes: normal inspection, PERRL, EOMI ENT: normal ENT inspection, hearing grossly normal, pharynx normal Neck: supple, no JVD, trachea midline Respiratory/Chest: lungs clear, normal breath sounds, no respiratory distress Cardiovascular: regular rate, rhythm, no edema, no murmur Abdomen / GI: normal bowel sounds, non tender, soft Extremities: normal inspection, no calf tenderness, no pedal edema Neurologic/Psychiatric: alert, normal mood/affect, oriented x 3 Skin: normal color, warm/dry, no rash (Lucero Ferguson, STORM) Hospital Course 66 y/o female with a history of HTN, HLD, prolonged QT syndrome, REM sleep behavior disorder, and osteopenia who presented to the ED on 01/07 with chest pain. The pain had resolved on its own, but the patient now states it is coming and going. Chest pain had originally been accompanied with dizziness, nausea, diaphoresis and shortness of breath, although these have now resolved except for some mild dizziness. Pt afebrile, VSS. CXR shows no acute disease. EKG shows no ischemic changes. QT interval slightly prolonged. Cardiac enzymes negative. Chest pain -Admit to telemetry for observation. No acute events overnight, sinus rhythm with heart rate 60s-90s -Cardiac enzymes negative x 3 -EKGs no ischemic changes. Prolonged QT, which pt has known history of -Stress echocardiogram normal -Fasting lipid profile normal: triglycerides 128, total cholesterol 172, LDL 95 , HDL 51 -HgbA1c 6.1 on 01/07 HTN--stable -Continue losartan 25 mg PO qd and metoprolol succinate 25 mg PO qd HLD -Continue Crestor 5 mg PO q2d. Last dose taken 01/06 -Statin recently changed from Lipitor 10 mg PO qd due to myalgias. AST elevated and CK barely elevated, may be due to previous statin dosing. REM sleep behavior disorder -Continue clonazepam 0.25 mg PO qhs Hirsutism -Continue Aldactone 25 mg PO qd Hot flashes -Continue clonidine 0.1 mg PO qhs DVT prophylaxis -Enoxaparin 40 mg SC q24h -KEIRA sotomayor and SCDs Code Status -Level I, FULL RESUSCITATION STATUS Total Time Spent: Greater than 30 minutes This includes examination of the patient, discharge planning, medication reconciliation, and communication with other providers. (Lucero Ferguson ., STORM) Discharge Instructions Please refer to the electronic Patient Visit Report (Discharge Instructions) for additional information. (Lucero Ferguson .STORM) Additional Copies To Julián Interiano D.O. Reviewed: Pt Seen/Exam by Me (Ara Baptiste MD) History Physician Sap Bw Architect Supervision Note: I interviewed and examined the patient. Discussed with ANAIS Ferguson and agree with findings and plan as documented in the note. Any exceptions or clarifications are listed here: Pt feeling well. No further substernal chest pain. Upon questioning, it seems she missed her usual AM dose of Zantac yesterday and then drank coffee. It was shortly after this that she had the symptoms of CP. This may have been GI- related. She also has a more chronic right mid-axillary type of chest pain or "prickly" sensation that comes and goes with certain positions. This is not the issue that kemal ther in. Stress ECHO no ischemia. STable for dc to home No events on tele, VSS NAD, AAOx3 RRR no mgr CTAB no wcr Ext no edema Documented By: Ara Baptiste (Ara Baptiste MD)
--- NOTE | 2017-01-08 14:21 | EXERCISE STRESS ECHO ---
*NOTICE TO RECEIVING [employer] This information is strictly Confidential and protected under [place] law. [place] law prohibits you from making any further disclosure of this information unless further disclosure is expressly permitted by the written consent of the person to whom it pertains or is authorized by law. A general authorization for the release of medical or other information is not sufficient for this purpose. Hospital accepts no responsibility if the information is made available to any other person, INCLUDING THE PATIENT. Interpretation Summary * Name: ROSIO VICENTE Study Date: 01/08/2017 10:52 AM BP: 141/89 mmHg * Patient Location: [facility]\S\N285\S\2 HR: 94 * : 1950 (M/d/yyy) Gender: Female Height: 61 in * Age: 66 yrs Ethnicity: [place] Weight: 136 lb * Ordering Physician: Ara Baptiste * Performed By: Fatoumata Hinojosa * * Reason For Study: CHEST PAIN * BSA: 1.6 m2 * -- Conclusions -- * Diagnostic exercise echocardiogram without evidence of inducible ischemia * Hypertensive response to exercise. Procedure Details * A contrast injection of Definity was performed to improve assessment of LV function. * Contrast was injected into an intravenous site in the left arm. * One vial of Definity ultrasound contrast was diluted in normal saline to a total volume of 10 ml. A total of '4' ml of solution was administered during imaging. * Lot # [id number] of Definity utilized for procedure. * Expiration date 01/16. * The attending nurse who injected the contrast agent was RIC VELAZCO RN. Left Ventricular Findings with Stress * Baseline BP was slightly elevated. Hypertensive response to exercise Patient had right-sided chest pain whcih did not change during the test. This was not her index chest pain present at admission. Baseline echocardiogram images were normal. At peak exertion there was appropriate augmentation of all coreas without evidence of inducible wall motion abnormalities. Boss treadmill score:6 (low risk) Stress Parameters * Normal baseline electrocardiogram. * Stress ECG: No ST changes. No arrhythmias. * The stress portion of this study was personally supervised by the undersigned interpreting physician. * Rest heart rate was '94' BPM. * Rest blood pressure was '141/89' * Maximum heart rate achieved was 171 bpm. * Maximum heart rate was 111 % of maximum age-predicted heart rate. * Maximum blood pressure was '201/87' * Total exercise time was '6:21' * Maximum exercise MET level achieved was '7.50' METS * Maximum treadmill speed was '3.40' miles per hour. * Maximum treadmill elevation was '14.00'% grade. * Exercise was terminated due to 'target heart rate achieved.' * No symptoms during exercise. Left Ventricular Findings with Stress * Diagnostic exercise echocardiogram without evidence of inducible ischemia Hypertensive response to exercise.
[2017-01-08 14:46] VITALS: BP 124/82; PULSE 88; TEMP 36.7; O2SAT 97
[2017-01-09] MEDS ORDERED: ROSUVASTATIN CALCIUM 10 MG TAB PO SCH (12:00)
--- NOTE | 2017-01-13 11:30 | EDITING REQUIRED CODING QUERY ---
SUPPORTING DIAGNOSIS NEEDED A supporting diagnosis is required for the test/procedure performed on this patient in order for us to be reimbursed by the patient's insurance. Please provide a supporting diagnosis for the following test/procedure listed below next to the test name along with your signature. *If there is no additional diagnosis for this patient that would support the following test/procedure please document that below next to the test/procedure. Test(s)/Procedure(s) that require a supporting diagnosis: * HEMOGLOBIN A1C DIAGNOSIS: hyperglycemia, risk stratification for chest pain rule out Why not send this to her supervising doctor on this patient Dr Krueger? Provider Signature: ___Lucero Ferguson PA-C Date: _01/13/17 Thank you Magalys Lopez [email or web address] Information Management Once completed, please kindly fax back to [phone] For questions please call [phone]
== END 2017-01-08 15:34 | disposition home or self-care (01) ==
LOC: C.EDB 09:20 → C.MED 12:03 → ENRESERV 12:16
PROVIDERS: ADMIT Hospitalist; ATTEND Family Medicine
DX: R07.9 Chest pain, unspecified (principal); I10 Essential (primary) hypertension; E78.5 Hyperlipidemia, unspecified; R73.9 Hyperglycemia, unspecified; I45.81 Long QT syndrome; G47.52 REM sleep behavior disorder; M85.80 Other specified disorders of bone density and structure, unspecified site; Z91.040 Latex allergy status; Z88.0 Allergy status to penicillin; Z88.1 Allergy status to other antibiotic agents